=== PATIENT | female | born 2005 | race Two or more races ===

== ENCOUNTER 2025-08-23 17:59 | Emergency (ER) | payer MEDICAID, OTHER ==
[~2025-08-23] VITALS: Ht 154.9 cm; Wt 63.0 kg
[2025-08-23 19:57] VITALS: BP 135/88; PULSE 105; RESP 20; TEMP 98.8; O2SAT 97
[2025-08-23] MEDS ORDERED: PRED20TA2 PO (20:00)
[2025-08-23] MEDS ORDERED: ACET500T58 PO (20:00)
[2025-08-23] MEDS ORDERED: AZIT-43 PO (20:00)
[2025-08-23] MEDS ORDERED: ALBUAER3 IN (20:00)
--- NOTE | 2025-08-23 20:01 | ED.PDOC ---
SOB-HPI HPI Comments 19-year-old female presents to ER with complaints of cough x2 weeks. Patient with past medical history significant for asthma reports that she has been experiencing a mild cough with congestion and sore throat x2 weeks. She rates her current pain a 7/10. Reports that she is currently taking prednisone along with her rescue inhaler with slight relief. Patient presents to ER afebrile, ambulatory, in no distress. Denies fever, shortness of breath, known exposure to sick contacts, body aches, chills or any further symptoms/complaints Chief Complaint: Shortness of Breath Time Seen by MD: 18:12 Primary Care Provider: UNKNOWN Reviewed notes: Nurses Notes, Medications, Allergies Information Source: Patient Mode of Arrival: Ambulatory Past Medical History PAST MEDICAL HISTORY: Asthma Surgical History: Denies all surgeries BLENDER LABORER History: No Pertinent BLENDER LABORER History Family History Family History: Unknown Social History Smoker: Non-Smoker Alcohol: Denies ETOH Use Drugs: Denies Drug Use Lives In: Home Constitutional: denies: chills, diaphoresis, fatigue, fever, malaise, sweats, weakness, others EENTM: reports: others (As stated in HPI) Respiratory: reports: others (As stated in HPI) Cardiovascular: denies: chest pain, dizzy spells, diaphoresis, Dyspnea on exertion, edema, irregular heart beat, left arm pain, lightheadedness, palpitations, PND, syncope, others Gastrointestinal: denies: abdomen distended, abdominal pain, blood streaked bowels, constipated, diarrhea, dysphagia, difficulty swallowing, hematemesis, melena, nausea, poor appetite, poor fluid intake, rectal bleeding, rectal pain, vomiting, others Genitourinary: denies: abnormal vagina bleeding, burning, dyspareunia, dysuria, flank pain, frequency, hematuria, incontinence, pain, , vagina discharge, urgency, others Neurological: denies: dizziness, fainting, headache, left sided numbness, left sided weakness, numbness, paresthesia, pre-existing deficit, right sided numbness, right sided weakness, seizure, speech problems, tingling, tremors, weakness, others Musculoskeletal: denies: back pain, gout, joint pain, joint swelling, muscle pain, muscle stiffness, neck pain, others Integumetry: denies: bruises, change in color, change in hair/nails, dryness, laceration, lesions, lumps, rash, wounds, others Allergic/Immunocompromised: denies: Difficulty Healing, Frequent Infections, Hives, Itching, others Hematologic/Lymphatic: denies: anemia, blood clots, easy bleeding, easy bruising, swollen glands, others Endocrine: denies: excessive hunger, excessive sweating, excessive thirst, excessive urination, flushing, intolerance to cold, intolerance to heat, unexplained weight gain, unexplained weight loss, others Psychiatric: denies: anxiety, bipolar disorder, depression, hopeless, panic disorder, schizophrenia, sleepless, suicidal, others Physical Exam General Appearance: No Apparent Distress HEENT: Normal ENT Inspection, PERRL/EOMI, Pharynx Normal, TMs Normal Neck: Full Range of Motion, Non-Tender, Normal Respiratory: Chest Non-Tender, Lungs Clear, No Accessory Muscle Use, No Respiratory Distress, Normal Breath Sounds Cardiovascular: No Murmur, No Gallop, Regular Rate/Rhythm Breast Exam: Deferred Gastrointestinal: NOT DONE Genitalia: Deferred Pelvic: Deferred Rectal: Deferred Extremities: Normal capillary refill, Normal range of motion Neurologic: Alert, hand painter II-XII nml as Tested, No Motor Deficits, Normal Affect, Normal Mood, No Sensory Deficits Cerebellar Function: Normal Reflexes: Normal Skin: Dry, Normal Color, Warm Peripheral Pulses: 2+ Radial (R), 2+ Radial (L), 2+ Brachial (R), 2+ Brachial (L) Lymphatic: No Adenopathy Was a procedure done? Was a procedure done?: No Sedation Sedation?: No Differential Dx Differential Diagnosis: Pneumonia, Pulmonary Embolism, Respiratory Distress X-Ray, Labs, Meds, VS Vital Signs Date Time Temp Pulse Resp B/P (MAP) Pulse Ox O2 Delivery O2 Flow Rate FiO2 08/23/25 19:57 Room Air* 0 21 08/23/25 19:57 98.8 105 20 135/88 (104) 97 98.8 08/23/25 18:01 98.8 105 20 135/88 97 98.8 PATIENT: SIENNA MONTEIROCCT: [id number]: [id number] : 2005 LOC: ER ROOM / BED: / AGE / SEX: 19 / F ADM STATUS: REG ER SERVICE 56 ORDERING PHYSICIAN: SRINIVASAN MITTAL PROCEDURE(s): CXR2 - CHEST TWO VIEWS ROUTINE REASON: cough ORDER NUMBER(s): [id number], ACCESSION NUMBER(s): [id number] CHEST TWO VIEWS REASON FOR EXAM: cough COMPARISON: None TECHNIQUE: PA and lateral views of the chest are obtained. FINDINGS: The cardiomediastinal silhouette is within normal limits for size. There is no focal airspace disease. There is no pleural effusion. No acute osseous abnormality is identified. IMPRESSION: No radiographic evidence of acute cardiopulmonary process. ATED BY: MENDEL COLLINS MD DICTATED DATE/TIME: 08/23/252048 SIGNED BY: MENDEL COLLINS MD SIGNED DATE/TIME: 08/23/252048 CC: waiver signed Chest x-ray reviewed Advised to drink plenty of fluids Patient in no distress during ER visit/prior to discharge Advised to follow up with PCP in 1-2 days Patient verbalized understanding and agreeable with current plan of care Advised to return to ER immediately if symptoms worse Images Reviewed?: Images reviewed and evaluated by me Time of 1ST Reevaluation: 19:34 Reevaluation 1ST: N/A Patient Education/Counseling: Diagnosis, Treatment, Prognosis, Need For Follow Up Family Education/Counseling: No Family Present SEPSIS Sepsis Screen Date sepsis recognized/suspect: Aug 23, 2025 Time Sepsis recognized/suspect: 180 Recent Procedure: No On Antibiotic Therapy: No Respiratory Rate >20: No Heart Rate >90: Yes Temp<36 C (96.8 F) or >38.3 C: No SBP <90 or MAP <65 mmHG: No New Acute Mental Status Change: No Is the patient on CPAP, BIPAP,: No Physician Orders Chest Two Views Routine (08/23/25 19:57) Vital Signs Date Time Temp Pulse Resp B/P (MAP) Pulse Ox O2 Delivery O2 Flow Rate FiO2 08/23/25 19:57 Room Air* 0 21 08/23/25 19:57 98.8 105 20 135/88 (104) 97 98.8 08/23/25 18:01 98.8 105 20 135/88 97 98.8 Departure 1 Departure Time of Disposition: 19:52 Impression: Primary Impression: Acute asthmatic bronchitis Disposition: 01 HOME / SELF CARE / HOMELESS Condition: Stable e-Prescriptions Albuterol Sulfate (VENTOLIN MDI) 90 Mcg Ih 2 PUFF IN Q6HPRN, #1 INH 0 Refills Prov: SRINIVASAN MITTAL 08/23/25 Azithromycin (Azithromycin) 250 Mg Tab 250 MG PO DAILY MDD 500 for 5 Days, #6 TAB 0 Refills 2 TABLETS ORALLY ON DAY ONE, THEN 1 TABLET ORALLY DAILY FOR 4 DAYS Prov: SRINIVASAN MITTAL 08/23/25 Acetaminophen (Acetaminophen) 500 Mg Tab 500 MG PO Q4HPRN, #30 TAB 0 Refills Prov: SRINIVASAN MITTAL 08/23/25 Discharged With: Self Critical Care Note Critical Care Time?: No Stability Stability form required: No Heart Score Heart Score: Heart Score Response (Comments) Value History N/A 0 EKG N/A 0 Age N/A 0 Risk Factors N/A 0 Troponin N/A 0 Total 0 SRINIVASAN MITTAL Aug 23, 2025 20:01
--- NOTE | 2025-08-23 20:51 | DVH ---
CHEST TWO VIEWS REASON FOR EXAM: cough COMPARISON: None TECHNIQUE: PA and lateral views of the chest are obtained. FINDINGS: The cardiomediastinal silhouette is within normal limits for size. There is no focal airsp yvonne disease. There is no pleural effusion. No acute osseous abnormality is identified. IMPRESSION: No radiographic evidence of acute cardiopulmonary process.
== END 2025-08-23 21:01 | disposition home or self-care (01) ==
LOC: ER 17:59
DX: J45.901 Unspecified asthma with (acute) exacerbation (principal)
CPT/HCPCS: 71046

== ENCOUNTER 2025-10-09 17:59 | Emergency (ER) | payer MEDICAID ==
[~2025-10-09] VITALS: Ht 154.9 cm; Wt 63.3 kg
[~2025-10-09 17:59] MED LIST: ACET500T58 PO; ALBUAER3 IN; AZIT-43 PO
[2025-10-09] MEDS: IOHEXOL 300 MG/ML 100ML BOTTLE IJ ONE (21:55)
--- NOTE | 2025-10-09 22:59 | DVH ---
EXAM: CT NECK WITH CONTRAST SOFT INDICATION: left tonsilar swelling r/o abscess Exam Date: 10/09/2025 09:39 PM COMPARISON: None TECHNIQUE: CT of the neck with intravenous contrast. RADIATION DOSE: CTDIvol: 13.29 mGy, DLP: 313.05 mGy*cm CONTRAST: Type of contrast: Omnipaque 300 Contrast injected: 100 ml FINDINGS: There is no evidence of cervical mass lesion, pathologically enlarged lymph nodes or fluid collection. Prominent tonsillar ring. No abscess. The fat planes of the neck appear intact. The airway and larynx are unremarkable. The parotid, submandibular and thyroid glands are unremarkable. The vascular structures of the neck appear patent. The visualized lung apices are clear. The limited visualized portions of the brain are unremarkable. The osseous structures are unremarkable. IMPRESSION: Enlarged tonsils with no evidence for an abscess.
--- NOTE | 2025-10-09 23:13 | ED.PDOC ---
History of Present Illness HPI Comments 19-year-old female who presents with chief complaint of throat pain, redness, and swelling. Patient endorses 5 day history of symptoms. She reports having associated shortness of breath, difficulty swallowing, cough, congestion, and runny nose and noticing white patches to the back of her throat. No endorsed recent prior ailments, sick contacts, travel, substance use, or further pertinent events or history. Only medical history of asthma and allergies. REVIEW OF SYSTEMS: General: No fever, no chills, HEENT: Throat pain, redness, swelling, and white patches. Difficulty swallowing. Congestion. Runny nose. Cardiac: No chest pain. No palpitations. Lungs: Shortness of breath. Cough. GI: No abdominal pain, no vomiting Musculoskeletal: No joint pain , no back pain Skin: No rash, no wound Neuro: No headache, no dizziness, no syncope PHYSICAL EXAM: General: Awake, alert and oriented. No acute distress. Skin: Skin in warm, dry and intact without rashes or lesions. HEENT: The head is normocephalic and atraumatic. Conjunctivae are clear without exudates or hemorrhage. Sclera is non-icteric. Uvula deviated to the left. Lef t tonsillar swelling. No stridor or drooling. Neck: Normal range of motion. No JVD. Cardiac: Regular rate Respiratory: No signs of respiratory distress. No Stridor. Extremities: Upper and lower extremities are atraumatic in appearance without deformity. Neurological: The patient is awake, alert and oriented to person, place, and time with normal speech. Speech is clear. There is no facial asymmetry. Psychiatric: Appropriate mood and affect. Good judgement and insight. Chief Complaint: Sore Throat Time Seen by MD: 21:20 Primary Care Provider: UNKNOWN Reviewed Notes: Nurses Notes, Medications, Allergies Home Meds Active Scripts Albuterol Sulfate (VENTOLIN MDI) 90 Mcg Ih, 2 PUFF IN Q6HPRN, #1 INH 0 Refills Prov:SRINIVASAN MITTAL 08/23/25 Azithromycin (Azithromycin) 250 Mg Tab, 250 MG PO DAILY MDD 500 for 5 Days, #6 TAB 0 Refills 2 TABLETS ORALLY ON DAY ONE, THEN 1 TABLET ORALLY DAILY FOR 4 DAYS Prov:SRINIVASAN MITTAL 08/23/25 Acetaminophen (Acetaminophen) 500 Mg Tab, 500 MG PO Q4HPRN, #30 TAB 0 Refills Prov:SRINIVASAN MITTAL YIN 08/23/25 Information Source: Patient Mode of Arrival: Ambulatory Severity: Moderate Timing: Days Duration: Since onset Prehospital treatment: None Past Medical History PAST MEDICAL HISTORY: Asthma Surgical History: Denies all surgeries PACKAGING MACHINE OPERATOR History: No Pertinent PACKAGING MACHINE OPERATOR History Family History Family History: Unknown Social History Smoker: Non-Smoker Alcohol: Denies ETOH Use Drugs: Denies Drug Use Lives In: Home Was a procedure done? Was a procedure done?: No Differential Dx Considerations may include: Differential diagnoses considered include but are not limited to pharyngitis, cellulitis, streptococcal, thrush, tonsillitis, viral, other. X-Ray, Labs, Meds, VS Vital Signs Date Time Temp Pulse Resp B/P (MAP) Pulse Ox O2 Delivery O2 Flow Rate FiO2 10/09/25 23:28 94 18 97 Room Air 10/09/25 23:25 98.7 94 18 157/79 (105) 97 98.7 10/09/25 18:00 98.8 115 16 155/69 97 98.8 Lab Test 10/09/25 23:10 Range/Units White Blood Count Pending Red Blood Count Pending Hemoglobin Pending Hematocrit Pending Mean Corpuscular Volume Pending Mean Corpuscular Hemoglobin Pending Mean Corpuscular Hemoglobin Concent Pending Red Cell Distribution Width Pending Platelet Count Pending Mean Platelet Volume Pending Neutrophils (%) (Auto) Pending Lymphocytes (%) (Auto) Pending Monocytes (%) (Auto) Pending Basophils (%) (Auto) Pending Neutrophils # (Auto) Pending Lymphocytes # (Auto) Pending Monocytes # (Auto) Pending Sodium Level Pending Potassium Level Pending Chloride Level Pending Carbon Dioxide Level Pending Anion Gap Pending Blood Urea Nitrogen Pending Creatinine Pending Glomerular Filtration Rate Calc Pending BUN/Creatinine Ratio Pending Serum Glucose Pending Calcium Level Pending Time of 1ST Reevaluation: 22:47 Reevaluation 1ST: Unchanged Patient Education/Counseling: Need For Follow Up Family Education/Counseling: No Family Present SEPSIS Sepsis Screen Date sepsis recognized/suspect: Oct 09, 2025 Time Sepsis recognized/suspect: 1800 Recent Procedure: No On Antibiotic Therapy: No Respiratory Rate >20: No Heart Rate >90: Yes Temp<36 C (96.8 F) or >38.3 C: No SBP <90 or MAP <65 mmHG: No New Acute Mental Status Change: No Is the patient on CPAP, BIPAP,: No Physician Orders Complete Blood Count (10/09/25 21:19) Basic Metabolic Panel (10/09/25 21:19) Saline Lock (10/09/25 21:19) Neck With Contrast Soft (10/09/25 21:19) Rapid Strep Screen - Throat (10/09/25 23:32) Dexamethasone Injection (Decadron Inject (10/09/25 23:45) Vital Signs Date Time Temp Pulse Resp B/P (MAP) Pulse Ox O2 Delivery O2 Flow Rate FiO2 10/09/25 23:28 94 18 97 Room Air 10/09/25 23:25 98.7 94 18 157/79 (105) 97 98.7 10/09/25 18:00 98.8 115 16 155/69 97 98.8 Laboratory Tests Test 10/09/25 23:10 White Blood Count Pending Departure 1 Departure Time of Disposition: 23:37 Impression: Primary Impression: Pharyngitis Disposition: HOME / SELF CARE / HOMELESS Condition: Stable Additional Instructions: ED DISCHARGE INSTRUCTIONS Instructions: Please read all instructions provided in this packet carefully. Although you have been discharged from the Emergency Department, this does not mean that you have a "clean bill of health". No definitive diagnosis for your symptoms has been made today. It is possible that you are in the process of developing a serious illness. This is why you must return to the ED without fail if any new or worsening symptoms (especially if your symptoms include chest pain, trouble breathing, abdominal pain, fever, headache, confusion, trouble seeing, or trouble walking) It is also very important that you see a primary care provider (PCP) within the next 3-5 days to follow up. If you are unable to get an appointment, return to the ED for re-evaluation. e-Prescriptions Clindamycin Hcl (Clindamycin Hcl) 300 Mg Cap 1 CAP PO TID, #21 CAP Prov: ELDA OLSON MD 10/09/25 Comments MDM: Patient is well-appearing, nontoxic. No stridor or drooling on exam. No abscess pharyngeal or parapharyngeal visualized on CT of the neck. Patient is felt stable for discharge home to follow up primary care provider promptly and return to the emergency department with any new or worsening symptoms. Extensive evaluation was performed in attempt to identify or rule out: (See differential diagnosis section) The following tests were ordered, and results were reviewed by me and discussed with patient: (See diagnostic results section) The following test were independently interpreted by me: CBC and BMP I reviewed and agreed with the following test results read by other providers: CT of the neck with contrast Drug therapy requiring intensive monitoring for toxicity: IV contrast Decision regarding hospitalization or escalation of hospital level of care: Risks and benefits of admission for further treatment of patient's condition was considered however due to patient's stable condition patient will be discharged to follow up closely or return to care for worsening of condition or inability to follow up. Critical Care Note Critical Care Time?: No Stability Stability form required: No Heart Score Heart Score: Heart Score Response (Comments) Value History N/A 0 EKG N/A 0 Age N/A 0 Risk Factors N/A 0 Troponin N/A 0 Total 0 I personally scribed for ELDA OLSON MD ([email or web address]) on 10/09/25 at 23:13. Electronically submitted by Cameron Louis ([email or web address]). ELDA OLSON MD Oct 09, 2025 23:13
[2025-10-09 23:25] VITALS: BP 157/79; TEMP 98.7
[2025-10-09 23:28] VITALS: PULSE 94; RESP 18; O2SAT 97
[2025-10-09 23:28] LABS: Hematocrit 46.3 % (36.0-46.0); Hemoglobin 16.2 g/dL (12.2-16.2); Mean Corpuscular Hemoglobin 31.2 pg (28.0-32.0); Mean Corpuscular Volume 89.1 fL (80.0-100.0); Nucleated Red Blood Cells % 0.1 %
[2025-10-09] MEDS ORDERED: CLIN1CAP70 PO (23:37)
[2025-10-09 23:42] LABS: Chloride 101 mmol/L (98-107); Potassium 3.7 mmol/L (3.5-5.1); Sodium 137 mmol/L (136-145)
[2025-10-09 23:43] LABS: Anion Gap 11 (5-15); Calcium 10.0 mg/dL (8.7-10.4); Carbon Dioxide 25 mmol/L (20-31)
[2025-10-09 23:48] LABS: BUN/Creatinine Ratio 10.1 (10.0-20.0); Blood Urea Nitrogen 7 mg/dL (9-23); Glucose 85 mg/dL (74-106)
== END 2025-10-10 00:05 | disposition home or self-care (01) ==
LOC: ER 17:59
DX: J02.9 Acute pharyngitis, unspecified (principal); J45.909 Unspecified asthma, uncomplicated; R42 Dizziness and giddiness; Z79.899 Other long term (current) drug therapy
CPT/HCPCS: 36415; 70491; 80048; 85025; 96372; 99285; J1100; Q9967